=== PATIENT | female | born 1970 | race Caucasian/White ===

== ENCOUNTER → 2019-04-07 | Outpatient (CLI) | payer OTHER ==
[~2019-04-07] MED LIST: AUGMENTIN 875875 MG PO; BACTRIM DS TAB1 EACH; FIORICET; FLOMAX PO; IBUPROFEN 800800 MG PO; IMITREX; INDOCIN; NORCO 5-325 TA1 EACH PO; PROMETRIUM; PYRIDIUM200 MG PO; TOPAMAX; VALIUM10 MG
== END ==
LOC: M.ULTRA 10:13 → M.RAD 10:13 → M.ULTRA 10:30
DX: Z12.31 Encounter for screening mammogram for malignant neoplasm of breast (principal); G43.709 Chronic migraine without aura, not intractable, without status migrainosus; R93.7 Abnormal findings on diagnostic imaging of other parts of musculoskeletal system

== ENCOUNTER → 2019-04-12 | Outpatient (CLI) | payer OTHER | LOC: M.ULTRA 13:00 → M.RAD 13:48 | DX: N60.01 Solitary cyst of right breast (principal); N60.02 Solitary cyst of left breast ==